=== PATIENT | male | born 1950 | race Caucasian/White ===

== ENCOUNTER → 2017-12-31 | Outpatient (CLI) | payer BC ==
--- NOTE | 2017-12-31 09:21 | DIAGNOSTIC IMAGING REPORT ---
RIGHT LOWER QUADRANT ULTRASOUND CLINICAL HISTORY: Right lower quadrant abdominal pain COMPARISON STUDY: No previous studies for comparison. FINDINGS: There is a reducible fat-containing right inguinal hernia. The appendix was not visualized. This study is therefore nondiagnostic in regards to acute appendicitis. IMPRESSION: 1. Reducible fat-containing right inguinal hernia 2. Nonvisualization of the appendix. Electronically signed by: Solo Drummond M.D. 12/31/2017 9:20 AM Dictated Date/Time: 12/31/2017 9:18 AM
== END | disposition home or self-care (01) ==
LOC: C.ULTRBC 08:47
PROVIDERS: ATTEND Nurse Practitioner
DX: R10.31 Right lower quadrant pain (principal)